=== PATIENT | male | born 1985 | race Caucasian/White ===

== ENCOUNTER 2023-07-17 08:04 | Emergency (ER) | payer BC, SELFPAY ==
--- NOTE | 2023-07-17 08:08 | ED.EAR ---
HPI - Ear Problem General Chief complaint: Ear Stated complaint: both ears painful Time Seen by Provider: 07/17/23 08:05 Source: patient Mode of arrival: ambulatory Limitations: no limitations History of Present Illness HPI Narrative: Patient is a 38-year-old male who presents with 4 days of ear fullness and sinus pressure. Patient states he rode his motorcycle to [place] on Friday in symptoms started on Friday. Patient took an Aleve but no allergy medicine. Denies any fever, chills, nausea, vomiting, diarrhea, cough, sore throat. MD Complaint: ear pain Related Data Home Medications Medication Instructions Recorded Confirmed No Home Medications 07/17/23 07/17/23 Allergies Allergy/AdvReac Type Severity Reaction Status Date / Time No Known Allergies Allergy Unverified 11/28/15 17:58 Review of Systems Review of Systems: All systems reviewed & are unremarkable except as noted in HPI and below Constitutional: Constitutional: Denies body ache(s), Denies chills, Denies fever(s), Denies headache(s) and Denies malaise Eyes: Eyes: Denies blurry vision, Denies eye discharge and Denies irritation ENT: Reports otalgia, Denies headache(s), Denies nasal congestion, Denies nasal discharge, Reports sinus pressure and Denies sore throat Cardiovascular: Cardiovascular: Denies chest pain, Denies edema, Denies palpitations and Denies dyspnea on exertion Respiratory: Respiratory: Denies cough and Denies dyspnea on exertion Gastrointestinal: Gastrointestinal: Denies abdominal pain, Denies diarrhea, Denies nausea and Denies vomiting Musculoskeletal: Musculoskeletal: Denies back pain, Denies arthralgias and Denies muscle weakness Integumentary/Breasts: Skin/Breast: Denies pruritus and Denies rash Neurologic: Denies headache(s) Psychiatric: Psychiatric: Reports no additional psychiatric complaints Endocrine: Endocrine: Denies palpitations PMFSH Comments At time of signature, agree with nursing past medical, surgical, social and family history. There is no relevant family history pertinent to the presenting complaint? Exam Const: General: cooperative, healthy appearing, no acute distress and well nourished Nutritional Appearance: well nourished Orientation/consciousness: patient oriented x3 Limitations: no limitations HENMT: Head: normal to inspection, normocephalic and atraumatic Ears: hearing grossly normal bilaterally, TM's normal bilaterally, no periauricular adenopathy and Abnormal EAC present foreign body on the left (bug) Face/Nose/Sinus: Normal external nose present, Normal nares present, Normal nasal mucous membranes and turbinates present, No nasal discharge present, normal facial exam and sinuses nontender Face and sinus: normal facial exam and sinuses nontender Mouth: Yes Normal oral and palatal mucosa present, Yes lip normal, Yes tongue normal and Yes moist mucous membranes Throat: posterior oropharynx normal, tonsils normal and uvula midline Eyes: General: appearance normal, both eyes and all related structures Alignment and Position: alignment normal and position normal Eyelids: eyelids normal Pupils: Equal, round and reactive pupils present EOM: EOMs intact bilaterally Neck: Neck: normal visual inspection, full ROM, no lymphadenopathy and supple Chest: Chest palpation & inspection: normal inspection of the chest Resp: Effort & Inspection: normal respiratory effort and able to speak in complete sentences Auscultation: clear to auscultation bilaterally, no crackles, no rales, no rhonchi and no wheezes Cardio: Rate: regular rate Rhythm: regular rhythm Heart sounds: S1 normal heart sound present and S2 normal heart sound present Skin: General skin exam: normal color and no rashes or lesions noted Neuro: General: patient oriented x3 and moves all extremities Cranial nerves: Yes Equal, round and reactive pupils present Cognition (Neuro): normal cognition Speech: normal speech Gait exam (Neuro): Normal g
[2023-07-17 08:16] VITALS: BP 143/75; PULSE 60; RESP 14; TEMP 36.8; O2SAT 100
== END 2023-07-17 08:39 | disposition home or self-care (01) ==
PROVIDERS: Emergency Provider Nurse Practitioner Family
DX: J30.2 Other seasonal allergic rhinitis (principal); T16.2XXA Foreign body in left ear, initial encounter; W44.F4XA Insect entering into or through a natural orifice, initial encounter
CPT/HCPCS: 69200; 99212; G0463

== ENCOUNTER 2023-12-10 14:00 | Emergency (ER) | payer BC, SELFPAY ==
[2023-12-10 14:28] VITALS: BP 124/79; PULSE 65; RESP 16; TEMP 36.4; O2SAT 99
--- NOTE | 2023-12-10 14:41 | ED.URI ---
HPI - URI/Sore Throat General Chief Complaint: Upper Respiratory Infection Stated Complaint: sore throat Time Seen by Provider: 12/10/23 14:41 Source: patient Mode of arrival: ambulatory Limitations: no limitations History of Present Illness HPI Narrative: 38-year-old male presents with complaint of pain to left side of mouth and throat. Patient pointing towards his tongue and teeth On left side. Patient concern for strep throat. States his friend recently had it. Afebrile. All systems reviewed and negative except as noted above. Related Data Allergies Allergy/AdvReac Type Severity Reaction Status Date / Time No Known Allergies Allergy Unverified 11/28/15 17:58 Review of Systems Review of Systems: CONSTITUTIONAL: Denies fever, chills, or sweats. EYES: Denies visual changes, redness, or discharge. ENT: Denies rhinorrhea, congestion . Reports left-sided sore throat, dental pain CARDIOVASCULAR: Denies chest pain, palpitations, or edema. RESPIRATORY: Denies cough or dyspnea. GASTROINTESTINAL: Denies abdominal pain, nausea, vomiting, or diarrhea. GENITOURINARY: Denies dysuria or hematuria. SKIN: Denies rash or itching. MUSCULOSKELETAL: Denies back pain, joint pain, or myalgia. NEUROLOGIC: Denies headache, numbness, or weakness. PSYCHIATRIC: Denies anxiety or depression. All other systems reviewed are negative, except as documented in HPI. PMFSH Comments At time of signature, agree with nursing past medical, surgical, social and family history. There is no relevant family history pertinent to the presenting complaint. Exam Narrative: GENERAL: This is a well-nourished, well-developed patient, in no apparent distress. HEAD: normocephalic, atraumatic. EYES: PERRL. Sclera clear/white. Vision is grossly intact. EARS: External ears normal, auditory canals clear and without drainage, TMs normal without perforation. Hearing grossly intact. NOSE: External nose normal with no obvious nasal discharge, nares without redness, no rhinorrhea. THROAT: Mucous membranes moist, posterior pharynx clear. no swelling or exudates. No concerns for tonsillar abscess. mouth: pt has poor dentition. dental decay, cavities, broken teeth NECK: Neck supple, non-tender without lymphadenopathy, masses or thyromegaly. CARDIOVASCULAR: Regular rate and rhythm without murmurs, gallops, or rubs. RESPIRATORY: Clear to auscultation. Breath sounds equal bilaterally. No wheezes, rales, or rhonchi. SKIN: warm, Dry, intact with no suspicious lesions or rash, good texture and turgor. NEURO: awake, alert, and oriented to person, place and time. There were no obvious focal neurologic abnormalities. EXTREMITIES: No joint tenderness, effusion, or edema noted. Course Course Level of Care: Express Care Visit Vital Signs Vital signs: Vital Signs Temperature 36.4 C L 12/10/23 14:28 Pulse Rate 65 12/10/23 14:28 Respiratory Rate 16 12/10/23 14:28 Blood Pressure 124/79 12/10/23 14:28 Pulse Oximetry 99 12/10/23 14:28 Oxygen Delivery Room Air 12/10/23 14:28 Temperature 36.4 C L 12/10/23 14:28 Pulse Rate 65 12/10/23 14:28 Respiratory Rate 16 12/10/23 14:28 Blood Pressure 124/79 12/10/23 14:28 Pulse Oximetry 99 12/10/23 14:28 Oxygen Delivery Room Air 12/10/23 14:28 reviewed MDM - URI/Sore Throat MDM Narrative Medical decision making narrative: strep test negative. will treat patient for dental infection with amoxicillin. Recommend follow-up with dentist. Patient is aware of diagnosis, understands and agrees to treatment plan. Anticipatory guidance given. Patient agrees to follow-up as directed and is aware of reasons to seek care at the emergency department. Portions of this record may have been created with voice recognition software Lab Data Labs: Lab Results 12/10/23 Range/Units 14:52 POC Grp A Strep Screen Negative (Negative) Discharge Plan Discharge Clinical Impressio
[2023-12-10 14:54] LABS: EDSTREPNEGPOS1 Negative (Negative)
== END 2023-12-10 15:12 | disposition home or self-care (01) ==
PROVIDERS: Emergency Provider Nurse Practitioner Family
DX: K08.89 Other specified disorders of teeth and supporting structures (principal)
CPT/HCPCS: 87081; 87880; 99213; G0463

== ENCOUNTER 2024-01-13 08:43 | Outpatient (CLI) | payer SELFPAY ==
--- NOTE | ~2024-01-13 | XR_ITS ---
3 VIEWS LUMBAR SPINE Ordering provider: Anisha Avelar APRN History: . M54.2 - Cervicalgia . Comparison: None. FINDINGS: VERTEBRAL BODIES: No visible fracture or subluxation. Possible old fracture in the left transverse process of L3. DISK SPACES: Moderate narrowing of the disc L4-L5. SOFT TISSUES: Normal. IMPRESSION: No acute osseous abnormality lumbar spine. Moderate narrowing of the disc L4-L5. Reviewed, dictated and finalized at location A. CUTTING MACHINE OPERATOR
--- NOTE | ~2024-01-13 | XR_ITS ---
[id number] Ordering provider: Anisha Avelar APRN History: . M54.2 - Cervicalgia . Comparison: None. FINDINGS: VERTEBRAL BODIES: Normal height and alignment. No visible fracture or subluxation. The dens is intact . DISK SPACES: Severe narrowing of the disc C5-C6. Uncovertebral joint osteoarthritic changes at the sa me level. PARASPINOUS SOFT TISSUES: No prevertebral soft tissue swelling. IMPRESSION: No acute osseous abnormality cervical spine. Severe degenerative disc disease at the level of C5-C6. Reviewed, dictated and finalized at location A. MECHANIC
== END 2024-01-13 08:44 | disposition home or self-care (01) ==
PROVIDERS: PCP Nurse Practitioner Family; Visit Provider Nurse Practitioner Family
DX: M54.2 Cervicalgia (principal); M54.50 Low back pain, unspecified; R20.2 Paresthesia of skin
CPT/HCPCS: 72040; 72100

== ENCOUNTER 2024-03-16 10:06 | Outpatient (CLI) | payer BC, SELFPAY ==
--- NOTE | 2024-03-16 11:00 | NEURO_ITS ---
Impression: # Non diabetic Complains of numbness and weakness of hands. ? # Bilateral mild Carpal Tunnel Syndrome. ? # Bilateral ulnar neuropathy across the elbows, left more than right. ? # Abnormal needle exam of first dorsal interosseous and abductor digiti minimi bilaterally. ? Nerve Conduction Studies Anti Sensory Summary Table ?Stim Site NR Peak (ms) P-T Amp (?V) Site1 Site2 Delta-P (ms) Dist (cm) Reilly (m/s) Left Median Anti Sensory (2-3nd Digit) Wrist ? 3.9 24.7 Wrist 2-3nd Digit 3.9 14.0 36 Wrist ? 4.2 13.5 Wrist 2-3nd Digit 3.9 14.0 36 Right Median Anti Sensory (2-3nd Digit) Wrist ? 3.6 32.7 Wrist 2-3nd Digit 3.6 14.0 39 Wrist ? 3.7 20.8 Wrist 2-3nd Digit 3.6 14.0 39 Left Radial Anti Sensory (Base 1st Digit) Wrist ? 2.3 14.9 Wrist Base 1st Digit 2.3 0.0 Right Radial Anti Sensory (Base 1st Digit) Wrist ? 2.5 13.8 Wrist Base 1st Digit 2.5 0.0 Left Ulnar Anti Sensory (5th Digit) Wrist ? 2.9 11.1 Wrist 5th Digit 2.9 14.0 48 Right Ulnar Anti Sensory (5th Digit) Wrist ? 2.6 41.8 Wrist 5th Digit 2.6 14.0 54 Motor Summary Table ?Stim Site NR Onset (ms) O-P Amp (mV) Site1 Site2 Delta-0 (ms) Dist (cm) Reilly (m/s) Left Median Motor (Abd Poll Brev) Wrist ? 4.1 4.3 Elbow Wrist 5.7 32.0 56 Elbow ? 9.8 2.1 Right Median Motor (Abd Poll Brev) Wrist ? 4.0 5.5 Elbow Wrist 5.5 31.0 56 Elbow ? 9.5 5.0 Left Ulnar Motor (Abd Dig Minimi) Wrist ? 3.0 2.1 A Elbow Wrist 8.1 32.0 40 A Elbow ? 11.1 1.9 B Elbow Wrist 4.9 26.0 53 B Elbow ? 7.9 1.3 Right Ulnar Motor (Abd Dig Minimi) Wrist ? 2.8 6.9 A Elbow Wrist 6.4 32.0 50 A Elbow ? 9.2 5.5 B Elbow Wrist 3.6 20.0 56 B Elbow ? 6.4 4.5 F Wave Studies ?NR F-Lat (ms) L-R F-Lat (ms) Left Median (Mrkrs) (Abd Poll Brev) ? 30.51 0.16 Right Median (Mrkrs) (Abd Poll Brev) ? 30.67 0.16 Left Ulnar (Mrkrs) (Abd Dig Min) ? 29.28 1.38 Right Ulnar (Mrkrs) (Abd Dig Min) ? 27.90 1.38 EMG ?Side Muscle Nerve Root Ins Act Fibs Amp Dur Recrt Comment Right 1stDorInt Ulnar C8-T1 Nml Nml Nml >12ms +1 Right Ext Indicis Radial (Post Int) C7-8 Nml Nml Nml Nml Nml Right Ext Digitorum Radial (Post Int) C7-8 Nml Nml Nml Nml Nml Right BrachioRad Radial C5-6 Nml Nml Nml Nml Nml Right PronatorTeres Median C6-7 Nml Nml Nml Nml Nml Right Abd Poll Brev Median C8-T1 Nml Nml Nml Nml Nml Right ABD Dig Min Ulnar C8-T1 Nml Nml Nml >12ms +1 Left 1stDorInt Ulnar C8-T1 Nml Nml Nml >12ms +1 Left Ext Indicis Radial (Post Int) C7-8 Nml Nml Nml Nml Nml Left Ext Digitorum Radial (Post Int) C7-8 Nml Nml Nml Nml Nml Left BrachioRad Radial C5-6 Nml Nml Nml Nml Nml Left PronatorTeres Median C6-7 Nml Nml Nml Nml Nml Left Abd Poll Brev Median C8-T1 Nml Nml Nml Nml Nml Left ABD Dig Min Ulnar C8-T1 Nml Nml Nml >12ms +1 MTDD
--- OUTSIDE RECORDS SUMMARY | 2024-03-16 11:00 | XMS_ITS | Clinical Summary ---
Author Organization [facility] Address [address] [place] [address] Care Team Providers Care Construction Cost Estimator Name Role Phone Provider, None Primary Care Provider Unavailabl e Allergies Active Allergy Reactions Criticality Noted Date Comments Tramadol Nausea,Shortness of Breath,Rash High 07/19 seizures Medications No known medications Active Problems No known active problems Social History Tobacco Use Types Packs/Day Years Used Date Smoking Tobacco: Every Day Smokeless Tobacco: Never Alcohol Use Standard Drinks/Week Comments Not Currently 0 (1 standard drink = 0.6 oz pur e alcohol) Sex and Gender Information Value Date Recorded Sex Assigned at Not on file 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 Gender Identity Not on file Sexual Orientation Not on file Last Filed Vital Signs Vital Sign Reading Time Taken Comments Blood Pressure 110/66 06/21/2020 4:25 PM CDT Pulse 97 06/21/2020 4:25 PM CDT Temperature 36.5 ??C (97.7 ??F) 06/21/2020 4:25 PM CD T Respiratory Rate 18 06/21/2020 4:25 PM CDT Oxygen Saturation 96% 06/21/2020 4:25 PM CDT Inhaled Oxygen Concentration - - Weight 100.7 kg (222 lb) 06/21/2020 4:25 PM CDT Height - - Body Mass Index - - Plan of Treatment Health Maintenance Due Date Last Done Comments Hepatitis C Virus (HCV) Screening 1984 TdaP Immunization 1984 Hepatitis B Immunization (1 of 3 - 19+ 3-dose series) 2003 Influenza Immunization (#1) 2023 SARS-COV-2 Immunization (2 - 2023- season) 2023 12/13/2020 Respiratory Syncytial Virus (RSV) Immunization (Adult) (1 - 1-dose 75+ series) 2059 Pneumococcal Immunization Combined Aged Out 2013 No longer eligible based on patient's age to complete this topic Meningococcal Immunization (ACWY) Aged Out No longer eligible based on patient's age to complete this topic Rotavirus Immunization Aged Out No lo nger eligible based on patient's age to complete this topic Care Teams Construction Cost Estimator Relationship Specialty Start Date End Date Provider, None [place] PCP - General 01/11/20
--- OUTSIDE RECORDS SUMMARY | 2024-03-16 11:00 | XMS_ITS | CONTINUITY OF CARE DOCUMENT ---
Author Name belen glover Address Unknown Organization [facility] Address [address] [place] [address] Phone [phone] Care Team Providers Care Product Advisor Name Role Phone Magdy VALDEZ, Maryana Unavailable NEMESIO RALPH MD Unavailable Unavailable INSURANCE PROVIDERS Payer name Policy type / Coverage type [place] [employer] ID [employer] Medicaid [id number]
== END 2024-03-16 10:07 | disposition home or self-care (01) ==
LOC: ANHNEURO 10:09
PROVIDERS: PCP Nurse Practitioner Family; Visit Provider Nurse Practitioner Family
DX: G56.03 Carpal tunnel syndrome, bilateral upper limbs (principal); G56.23 Lesion of ulnar nerve, bilateral upper limbs; R94.131 Abnormal electromyogram [EMG]
CPT/HCPCS: 95886; 95911

== ENCOUNTER 2024-07-09 08:36 | Outpatient (CLI) | payer BC, SELFPAY ==
--- NOTE | ~2024-07-09 | MR_ITS ---
MRI of the lumbar spine Clinical History: Radiculopathy Technique: Axial T2-weighted images, and sagittal T1-weighted, T2-weighted, and T2 fat-sat images wer e acquired. Findings: There is 3 mm anterolisthesis of L4 over L5. No fracture seen. No bone marrow signal abnorm ality seen. At L1-L2, L2-L3, L3-L4, there is no disc bulge or herniation. There are moderate facet joint degenera tive changes at these levels. No spinal canal stenosis or neural foraminal narrowing at these levels. At L4-L5, there is disc desiccation with mild disc bulge and tiny fissure. There is severe facet arth ropathy. There is mild central canal stenosis. There is severe bilateral neural foraminal narrowing. At L5-S1, there is minimal disc bulge and moderate facet arthropathy. No central canal stenosis. Ther e is advanced bilateral neural foraminal narrowing. Paravertebral soft tissues are unremarkable. Impression: Advanced bilateral neural foraminal narrowing at L4-L5 and L5-S1, with underlying degenerative change s, as detailed above. 3 mm anterolisthesis of L4 over L5. Reviewed, dictated and finalized at location . Impression: Advanced bilateral neural foraminal narrowing at L4-L5 and L5-S1, with underlyi ng degenerative changes, as detailed above. 3 mm anterolisthesis of L4 over L5.
--- NOTE | ~2024-07-09 | MR_ITS ---
MRI of the cervical spine Clinical History: Disc stenosis, connective tissue disorder Technique: Axial T2-weighted and gradient images, and sagittal T1-weighted, T2-weighted, and STIR racheal ges were acquired. Findings: No acute fracture or subluxation. There is mild reversal of the normal cervical lordosis. T here are reactive marrow signal changes about the C5-C6 disc space due to underlying degenerative dis c disease. At C2-C3, there is no disc bulge or herniation. No spinal canal stenosis, cord compression, or neural foraminal narrowing. At C3-C4, there is no significant disc bulge or herniation. No spinal canal stenosis, cord compressio n, or neural foraminal narrowing. At C4-C5, there is minimal disc osteophyte complex. Probable minimal bilateral neural foraminal narro wing. No canal stenosis or cord compression. At C5-C6, there is large disc osteophyte complex, resulting in moderate to severe canal stenosis and associated cord compression. There is spinal cord edema at this level. There is bilateral neural fora han narrowing. At C6-C7, there is no significant disc bulge or herniation. No spinal canal stenosis, cord compressio n, or neural foraminal narrowing. Paravertebral soft tissues are unremarkable. Impression: Large disc osteophyte complex at C5-C6, resulting in moderate to severe canal stenosis and cord compr ession. There is associated spinal cord edema at this level, which could reflect acute edema versus m yelomalacia. Correlate clinically. Based on imaging, neurosurgical consultation should be strongly co nsidered given the degree of compression present. Reviewed, dictated and finalized at location M. Impression: Large disc osteophyte complex at C5-C6, resulting in moderate to severe canal s tenosis and cord compression. There is associated spinal cord edema at this lev el, which could reflect acute edema versus myelomalacia. Correlate clinically. Based on imaging, neurosurgical consultation should be strongly considered give n the degree of compression present.
== END 2024-07-09 08:37 | disposition home or self-care (01) ==
PROVIDERS: PCP Nurse Practitioner Family; Visit Provider Nurse Practitioner Family
DX: R20.2 Paresthesia of skin (principal); R50.9 Fever, unspecified; E66.9 Obesity, unspecified; R29.898 Other symptoms and signs involving the musculoskeletal system; M25.50 Pain in unspecified joint; M51.369 Other intervertebral disc degeneration, lumbar region without mention of lumbar back pain or lower extremity pain
CPT/HCPCS: 72141; 72148